=== PATIENT | female | born 1950 | race Two or more races ===

== ENCOUNTER 2018-10-19 14:15 | Emergency (ER) | payer MEDICARE, MEDICAID ==
[~2018-10-19] VITALS: Ht 160 cm; Wt 68.0 kg
[~2018-10-19 14:15] MED LIST: Isovue-300 100ml vial INJ PRN
--- NOTE | 2018-10-19 14:19 | Emergency Room Report ---
History of Present Illness General Chief Complaint: Abdominal Pain Source: Patient, EMS Present Illness HPI This patient states that she has had ongoing back and flank pain for at least 1 month. She has a history of metastatic lung cancer. She is undergoing chemotherapy. She states that she has had a history of urinary tract infections also. She is on pain medications and has been constipated. However , she states she did have a normal bowel movement this morning. She did have one episode of vomiting this morning. She denies fever or chills. She denies dysuria or hematuria. She has no other complaints. Allergies: Coded Allergies: No Known Allergies (Unverified , 10/19/18) Patient History Past Medical History: see triage record, DM, HTN, CAD, other - anemia, metastatic ca Social History: Denies: smoking, alcohol use, drug use Reviewed Nursing Documentation: PMH: Agreed; PSxH: Agreed Nursing Documentation-PMH Hx Cardiac Problems: Yes - DVT, ANEMIA Hx Hypertension: Yes Hx Diabetes: Yes - TYPE 2 Hx Cancer: Yes - ENDOMETRIAL Review of Systems All Other Systems: negative except mentioned in HPI Physical Exam Vital Signs Date Time Temp Pulse Resp B/P (MAP) Pulse Ox O2 Delivery O2 Flow Rate FiO2 10/19/18 14:02 98.4 80 19 110/72 (85) 98 Room Air Sp02 EP Interpretation: reviewed, normal General Appearance: no apparent distress, alert, GCS 15, non-toxic Head: normocephalic, atraumatic Eyes: bilateral eye normal inspection, bilateral eye PERRL ENT: hearing grossly normal, normal pharynx, no angioedema, normal voice Neck: full range of motion, supple/symm/no masses Respiratory: chest non-tender, lungs clear, normal breath sounds, no respiratory distress, no retraction, no accessory muscle use, speaking full sentences Cardiovascular #1: regular rate, rhythm, no edema Gastrointestinal: normal bowel sounds, non tender, soft, non-distended, no guarding, no rebound Rectal: deferred Genitourinary: normal inspection Musculoskeletal: back normal, gait/station normal, normal range of motion, non- tender Neurologic: alert, oriented x3, responsive, motor strength/tone normal, sensory intact, speech normal Psychiatric: judgement/insight normal, memory normal, mood/affect normal, no suicidal/homicidal ideation Skin: no rash Medical Decision Making Diagnostic Impression: Primary Impression: Chronic pain Additional Impressions: Metastatic cancer UTI (urinary tract infection) ER Course This patient has a known history of metastatic cancer. I suspect it is actually gynecologic in etiology given the findings on CT of the abdomen pelvis. There was a language barrier and likely the patient has met to her lungs versus pulmonary being her primary. Regardless, there is no evidence of an emergency medical condition. Patient is undergoing chemotherapy by an oncologist. Patient has a slight urinary tract infection. I will go ahead and place the patient on a course of oral antibiotics. Patient was given IV antibiotics here in the emergency department. Patient was instructed to follow- up closely with her primary care physician and her oncologist. She is given close return precautions and follow-up instructions. Laboratory Tests Test 10/19/18 14:30 10/19/18 15:00 White Blood Count 7.0 K/UL (4.8-10.8) Red Blood Count 3.62 M/UL (4.20-5.40) L Hemoglobin 11.1 G/DL (12.0-16.0) L Hematocrit 33.8 % (37.0-47.0) L Mean Corpuscular Volume 93 FL (80-99) Mean Corpuscular Hemoglobin 30.7 PG (27.0-31.0) Mean Corpuscular Hemoglobin Concent 32.9 G/DL (32.0-36.0) Red Cell Distribution Width 12.5 % (11.6-14.8) Platelet Count 252 K/UL (150-450) Mean Platelet Volume 6.3 FL (6.5-10.1) L Neutrophils (%) (Auto) 66.1 % (45.0-75.0) Lymphocytes (%) (Auto) 18.4 % (20.0-45.0) L Monocytes (%) (Auto) 10.0 % (1.0-10.0) Eosinophils (%) (Auto) 4.7 % (0.0-3.0) H Basophils (%) (Auto) 0.9 % (0.0-2.0) Sodium Level 136 MMOL/L (136-145) Potassium Level 5.8 MMOL/L (3.5-5.1) H Chloride Level 102 MMOL/L (98-107) Carbon Dioxide Level 27 MMOL/L (21-32) Anion Gap 7 mmol/L (5-15) Blood Urea Nitrogen 30 mg/dL (7-18) H Creatinine 1.2 MG/DL (0.55-1.30) Estimate Glomerular Filtration Rate 44.5 mL/min (>60) Glucose Level 288 MG/DL (74-106) H Calcium Level 9.8 MG/DL (8.5-10.1) Total Bilirubin 0.3 MG/DL (0.2-1.0) Aspartate Amino Transferase (AST) 24 U/L (15-37) Alanine Aminotransferase (ALT) 11 U/L (12-78) L Alkaline Phosphatase 70 U/L (46-116) Total Protein 7.5 G/DL (6.4-8.2) Albumin 3.0 G/DL (3.4-5.0) L Globulin 4.5 g/dL Albumin/Globulin Ratio 0.7 (1.0-2.7) L Lipase 216 U/L (73-393) Urine Color Pale yellow Urine Appearance Cloudy Urine pH 5 (4.5-8.0) Urine Specific [place] 1.010 (1.005-1.035) Urine Protein 3+ (NEGATIVE) H Urine Glucose (UA) Negative (NEGATIVE) Urine Ketones Negative (NEGATIVE) Urine Blood 2+ (NEGATIVE) H Urine Nitrite Negative (NEGATIVE) Urine Bilirubin Negative (NEGATIVE) Urine Urobilinogen Normal MG/DL (0.0-1.0) Urine Leukocyte Esterase 3+ (NEGATIVE) H Urine RBC 2-4 /HPF (0 - 2) H Urine WBC 5-10 /HPF (0 - 2) H Urine Squamous Epithelial Cells Few /LPF (NONE/OCC) Urine Bacteria Moderate /HPF (NONE) H CT/MRI/US Diagnostic Results CT/MRI/US Diagnostic Results : Imaging Test Ordered: CT abd/pelvis Impression Impression: Limited assessment of the GI tract, due to lack of enteric contrast administration Lobulated, heterogeneous uterus, likely indicating old fibroid changes. However , the endometrium appears distended and heterogeneous, and the possibility of endometrial pathology should be considered. Apparent 4.5 cm left adnexal mass. It is unclear whether this is a large exophytic uterine fibroid with a necrotic center versus a true adnexal/ovarian mass. This appears to be surrounded by a small amount of fluid Fairly extensive retroperitoneal, mesenteric root, and peripancreatic lymphadenopathy. Possibly related to stated clinical history of metastatic lung carcinoma. However, the distribution is somewhat unusual for such, and the possibility of metastatic gynecological tumor should be considered given the above findings Mild nonspecific of the mesenteric root, possibly related to tumor involvement but the possibility of primary mesenteric inflammation which also be considered Right basilar pulmonary annalise atelectasis and/or scarring,, there are sclerotic vascular calcification, mild degenerative spondylosis incidentally noted Last Vital Signs Date Time Temp Pulse Resp B/P (MAP) Pulse Ox O2 Delivery O2 Flow Rate FiO2 10/19/18 14:02 98.4 80 19 110/72 (85) 98 Room Air Status: improved Disposition: HOME, SELF-CARE Condition: Improved Scripts Nitrofurantoin Monohyd/M-Cryst* (MACROBID 100 MG*) 100 Mg Capsule 100 MG ORAL EVERY 12 HOURS for 10 Days, #20 CAP Prov: hSannon Cisse DO 10/19/18 Shannon Cisse DO Oct 19, 2018 14:19
[2018-10-19] MEDS ORDERED: ZOFRAN4 M3 ORAL (14:24)
[2018-10-19] MEDS ORDERED: ACETAMINOPHEN500 M3 ORAL (14:24)
[2018-10-19] MEDS ORDERED: GABAPENTIN600 MG ORAL (14:24)
[2018-10-19] MEDS ORDERED: ALBUTEROL SULF8.5 G1 IH (14:24)
[2018-10-19] MEDS ORDERED: METFORMIN HCL1000 M1 ORAL (14:24)
[2018-10-19] MEDS ORDERED: NORCO 5-325 TA1 EACH ORAL (14:24)
[2018-10-19] MEDS ORDERED: DOCUSATE SODIU100 M2 ORAL (14:24)
[2018-10-19] MEDS ORDERED: ENOXAPARIN80 MG/0.8 SUBQ (14:24)
[2018-10-19 14:30] VITALS: BP 110/72
--- NOTE | 2018-10-19 14:30 | NUR ---
ED Nurse Note: pt was brought in by ambulance from [facility] c/o vomiting with right lower abdominal pain started today, pt stated she has endometrial cancer, pt is latvian speaking. seen by lashonda. iv stablsihed on the right wrist. blood drawn and was sent to lab. urine sent to lab. will continue to monitor.
[2018-10-19 14:52] LABS: BASOPHILS % (AUTO) 0.9 % (0.0-2.0); EOSINOPHILS % (AUTO) 4.7 % (0.0-3.0); HEMATOCRIT 33.8 % (37.0-47.0); HEMOGLOBIN 11.1 G/DL (12.0-16.0); LYMPHOCYTES % (AUTO) 18.4 % (20.0-45.0); MEAN CORPUSCULAR VOLUME 93 FL (80-99); NEUTROPHILS % (AUTO) 66.1 % (45.0-75.0); PLATELET COUNT 252 K/UL (150-450); RED BLOOD COUNT 3.62 M/UL (4.20-5.40); RED CELL DISTRIBUTION WIDTH 12.5 % (11.6-14.8)
[2018-10-19 15:00] LABS: ANION GAP 7 mmol/L (5-15); BLOOD UREA NITROGEN 30 mg/dL (7-18); CALCIUM 9.8 MG/DL (8.5-10.1); CARBON DIOXIDE 27 MMOL/L (21-32); CHLORIDE 102 MMOL/L (98-107); CREATININE 1.2 MG/DL (0.55-1.30); POTASSIUM 5.8 MMOL/L (3.5-5.1); SODIUM 136 MMOL/L (136-145)
--- NOTE | 2018-10-19 15:00 | NUR ---
ED Nurse Note: pt medicated and tolerated well.
[2018-10-19 15:04] LABS: ALANINE AMINOTRANSFERASE 11 U/L (12-78); ALBUMIN/GLOBULIN RATIO 0.7 (1.0-2.7); ALKALINE PHOSPHATASE 70 U/L (46-116); ASPARTATE AMINO TRANSFERASE 24 U/L (15-37); BILIRUBIN,TOTAL 0.3 MG/DL (0.2-1.0)
[2018-10-19 15:18] LABS: APPEARANCE,URINE CLOUDY; BILIRUBIN, URINE NEGATIVE (NEGATIVE); COLOR,URINE PALE YELLOW; GLUCOSE, URINE (UA) NEGATIVE (NEGATIVE); KETONES,URINE NEGATIVE (NEGATIVE); LEUKOCYTE ESTERASE ,URINE 3+ (NEGATIVE); NITRITE,URINE NEGATIVE (NEGATIVE); PH,URINE 5 (4.5-8.0); PROTEIN,URINE 3+ (NEGATIVE); UROBILINOGEN,URINE NORMAL MG/DL (0.0-1.0)
--- NOTE | 2018-10-19 16:15 | NUR ---
ED Nurse Note: pt went to ct with tech
--- NOTE | 2018-10-19 16:25 | NUR ---
ED Nurse Note: pt went back from ct with tech
[2018-10-19 17:04] VITALS: BP 145/83
[2018-10-19] MEDS ORDERED: cefTRIAXone 1 GM in NS 55 ML IVPB ONE (17:15)
--- NOTE | 2018-10-19 17:29 | Diagnostic Imaging Report ---
Clinical Indication: Ongoing back and flank pain for at least one month, history of metastatic lung cancer Technique: No oral contrast utilized, per emergency room physician request. IV administration nonionic contrast. Venous phase spiral acquisition obtained through the abdomen and pelvis. Multiplanar reconstructions were generated. Total dose length product 838.91 mGycm. CTDIvol(s) 14.79 mGy. Dose reduction achieved using automated exposure control Comparison: none Findings: Lack of enteric contrast limits assessment of the GI tract. There is no evidence of diverticulosis or diverticulitis. There is a small to moderate amount of retained colonic stool. The appendix is normal. No small bowel distention. No free or loculated intraperitoneal gas or fluid is evident. The distal esophagus, stomach, duodenum are unremarkable. There is fairly extensive lymphadenopathy. Numerous enlarged nodes with necrotic centers are seen surrounding the head of the pancreas and within the enrique hepatis and lesser sac. There are enlarged periaortic and pericaval nodes, likewise with necrotic centers, largest measuring 4.1 cm long axis dimension by 2.6 cm short axis dimension. Enlarged nodes are seen within the mesenteric root. There is also increased attenuation of the mesenteric root and thickening of or fluid within the anterior ureters fascia bilaterally. The uterus is diffusely heterogeneous, prominent for age, and somewhat lobulated. There is central fluid which appears to be in the distribution of the endometrial cavity and therefore may represent a distended endometrium filled with fluid and enhancing material. There is a left adnexal mass which demonstrates a low-attenuation center. This measures 4.5 cm long axis dimension. This appears to be surrounded by a small amount of fluid. The bladder is unremarkable. The liver, gallbladder, bile ducts, pancreas, spleen, adrenals, kidneys are unremarkable. There are fairly extensive atherosclerotic calcifications within the proximal thigh vessels. The bones demonstrate mild degenerative spondylosis changes. The included lung bases demonstrates atelectasis and/or scarring on the right. Impression: Limited assessment of the GI tract, due to lack of enteric contrast administration Lobulated, heterogeneous uterus, likely indicating old fibroid changes. However, the endometrium appears distended and heterogeneous, and the possibility of endometrial pathology should be considered. Apparent 4.5 cm left adnexal mass. It is unclear whether this is a large exophytic uterine fibroid with a necrotic center versus a true adnexal/ovarian mass. This appears to be surrounded by a small amount of fluid Fairly extensive retroperitoneal, mesenteric root, and peripancreatic lymphadenopathy. Possibly related to stated clinical history of metastatic lung carcinoma. However, the distribution is somewhat unusual for such, and the possibility of metastatic gynecological tumor should be considered given the above findings Mild nonspecific of the mesenteric root, possibly related to tumor involvement but the possibility of primary mesenteric inflammation which also be considered Right basilar pulmonary annalise atelectasis and/or scarring,, there are sclerotic vascular calcification, mild degenerative spondylosis incidentally noted The CT scanner at [facility] is accredited by the [employer] and the scans are performed using protocols designed to limit radiation exposure to as low as reasonably achievable to attain images of sufficient resolution adequate for diagnostic evaluation.
[2018-10-19 18:36] VITALS: BP 129/74
[2018-10-19] MEDS ORDERED: NITROFURANTOIN100 M2 ORAL (20:23)
[2018-10-19 21:05] VITALS: BP 129/74
--- NOTE | 2018-10-19 21:05 | NUR ---
ER DISCHARGE NOTE: Patient is cleared to be discharged per ERMD, pt is aox4, on room air, with stable vital signs. pt was given dc and prescription instructions, pt was able to verbalize understanding, pt id band and iv site removed without complications. pt is able to ambulate with steady gait. pt took all belongings. Pt took taxi
== END 2018-10-19 21:05 | disposition home or self-care (01) ==
LOC: EDBD 14:15 → EMR 14:56
DX: C34.90 Malignant neoplasm of unspecified part of unspecified bronchus or lung (principal); C79.82 Secondary malignant neoplasm of genital organs; E11.9 Type 2 diabetes mellitus without complications; I10 Essential (primary) hypertension; Z86.718 Personal history of other venous thrombosis and embolism; I25.10 Atherosclerotic heart disease of native coronary artery without angina pectoris; N39.0 Urinary tract infection, site not specified; G89.29 Other chronic pain
CPT/HCPCS: 36415; 74177; 80053; 81003; 83690; 84132; 85025; 87086; 87181; 96361; 96365; 96375; 99284; J0696; J2405; Q9967